=== PATIENT | male | born 1960 | race Caucasian/White ===

== ENCOUNTER 2016-11-24 12:39 | Emergency (ER) | payer OTHER ==
[~2016-11-24] VITALS: Ht 172.7 cm; Wt 72.1 kg
[~2016-11-24 12:39] MED LIST: CYCLOBENZAPRINE5 M3 PO; HYDROCODONE BIT1 T11 PO; NAPROSYN500 MG PO
[2016-11-24] MEDS ORDERED: ASPIR 8181 MG PO (13:00)
[2016-11-24] MEDS ORDERED: OMEPRAZOLE20 M2 PO (13:00)
[2016-11-24] MEDS ORDERED: PERPHENAZINE2 MG PO (13:00)
[2016-11-24] MEDS ORDERED: VITAMIN D31000 IU PO (13:02)
[2016-11-24] MEDS ORDERED: FLUTICASON0.05 MG/AC NAS (13:04)
[2016-11-24] MEDS ORDERED: VITAMIN B-11 TAB PO (13:04)
[2016-11-24] MEDS ORDERED: NEURONTIN400 MG PO (13:05)
[2016-11-24] MEDS ORDERED: CETIRIZINE HYDR10 MG PO (13:05)
[2016-11-24] MEDS ORDERED: VENTOLIN 02.5 MG/3 M INH (13:06)
[2016-11-24] MEDS ORDERED: ATROVENT I0.5 MG/2.5 INH (13:12)
[2016-11-24] MEDS ORDERED: [UNRECOGNIZED DRUG - OTHER] PO (13:14)
[2016-11-24] MEDS ORDERED: VENLAFAXINE HYD75 MG PO (13:16)
[2016-11-24] MEDS ORDERED: CELECOXIB200 MG PO (13:16)
[2016-11-24] MEDS ORDERED: AMITRIPTYLINE50 MG PO (13:16)
[2016-11-24 13:19] LABS: BASO % 0.4 % (0.0-1.0); EOS # 0.3 10*3/uL (0.0-0.4); EOS % 2.5 % (1.0-4.0); HEMATOCRIT 40.5 % (42.0-52.0); HEMOGLOBIN 13.6 g/dl (14.0-18.0); LYMPH # 2.5 10*3/uL (1.3-4.4); LYMPH % 24.3 % (27.0-41.0); MEAN CELL VOLUME 89.6 fl (80.0-94.0); MEAN CORPUSCULAR HGB 30.1 pg (27.0-31.0); MEAN CORPUSCULAR HGB CONC 33.6 g/dl (33.0-37.0); MEAN PLATELET VOLUME 10.8 fl (9.6-12.3); MONO # 0.7 10*3/uL (0.1-1.0); MONO % 7.1 % (3.0-9.0); NEUT # 6.6 10*3/uL (2.3-7.9); NEUT % 65.5 % (47.0-73.0); PLATELET COUNT AUTOMATED 165 10*3/uL (130-400); RED BLOOD COUNT 4.52 10*6/uL (4.50-5.90); RED CELL DISTRI WIDTH 13.1 % (0-14.5); WHITE BLOOD COUNT 10.1 10*3/uL (4.8-10.8)
[2016-11-24 13:39] LABS: BUN 12 mg/dl (7-24); CARBON DIOXIDE 28 mmol/L (21-32); CHLORIDE 108 mmol/L (98-107); EST GLOM FILT AFRICAN AMERICAN > 60 ml/min; GLUCOSE 112 mg/dL (65-99); POTASSIUM 4.2 mmol/L (3.5-5.1); SODIUM 144 mmol/L (136-145)
[2016-11-24 13:40] LABS: TROPONIN I < 0.015 ng/ml (<0.045)
== END 2016-11-24 14:41 | disposition home or self-care (01) ==
LOC: ED 12:39
PROVIDERS: Emergency Medicine
DX: R94.31 Abnormal electrocardiogram [ECG] [EKG] (principal); Z79.82 Long term (current) use of aspirin; Z79.899 Other long term (current) drug therapy

== ENCOUNTER 2020-10-22 14:34 | Observation (INO) | payer OTHER ==
[~2020-10-22] VITALS: Ht 172.7 cm; Wt 68.7 kg
[~2020-10-22 14:34] MED LIST changes: +AMITRIPTYLINE50 MG PO; +ASPIR 8181 MG PO; +ATROVENT I0.5 MG/2.5 INH; +CELECOXIB200 MG PO; +CETIRIZINE HYDR10 MG PO; +FLUTICASON0.05 MG/AC NAS; +NEURONTIN400 MG PO; +OMEPRAZOLE20 M2 PO; +PERPHENAZINE2 MG PO; +VENLAFAXINE HYD75 MG PO; +VENTOLIN 02.5 MG/3 M INH; +VITAMIN B-11 TAB PO; +VITAMIN D31000 IU PO; +[UNRECOGNIZED DRUG - OTHER] PO
[2020-10-22 14:44] VITALS: BP 124/85
[2020-10-22 14:51] LABS: BASO % 0.4 % (0.0-1.0); EOS # 0.3 10*3/uL (0.0-0.4); EOS % 2.8 % (1.0-4.0); HEMATOCRIT 35.7 % (42.0-52.0); LYMPH # 2.1 10*3/uL (1.3-4.4); LYMPH % 19.2 % (27.0-41.0); MEAN CELL VOLUME 91.5 fl (80.0-94.0); MEAN CORPUSCULAR HGB 29.2 pg (27.0-31.0); MEAN CORPUSCULAR HGB CONC 31.9 g/dl (33.0-37.0); MEAN PLATELET VOLUME 10.2 fl (9.6-12.3); MONO # 0.9 10*3/uL (0.1-1.0); MONO % 8.1 % (3.0-9.0); NEUT # 7.7 10*3/uL (2.3-7.9); NEUT % 69.2 % (47.0-73.0); PLATELET COUNT AUTOMATED 298 10*3/uL (130-400); RED CELL DISTRI WIDTH 12.9 % (0-14.5)
[2020-10-22 15:02] LABS: ACT PARTIAL THROMBO TIME 27.7 SECONDS (20.0-32.1)
[2020-10-22 15:09] LABS: ALBUMIN 2.9 gm/dl (3.1-4.5); ALKALINE PHOSPHATASE 111 U/L (45-117); BUN 24 mg/dl (7-24); CHLORIDE 108 mmol/L (98-107); CREATININE 1.41 mg/dL (0.70-1.30); POTASSIUM 4.3 mmol/L (3.5-5.1); SGOT/AST 9 IU/L (3-35); SGPT/ALT 17 U/L (12-78); SODIUM 141 mmol/L (136-145); TOTAL PROTEIN 7.4 gm/dL (6.4-8.2)
[2020-10-22 15:11] LABS: TROPONIN I < 0.015 ng/ml (<0.045)
[2020-10-22 15:37] VITALS: BP 131/75
[2020-10-22 17:49] VITALS: BP 157/76
[2020-10-22 18:05] VITALS: BP 146/88
[2020-10-22 18:13] VITALS: BP 146/88
[2020-10-22 20:12] VITALS: BP 132/85
[2020-10-23] VITALS (9 sets, daily range): BP systolic 98–145; BP diastolic 50–74
[2020-10-23 06:17] LABS: BASO # 0.1 10*3/uL (0.0-0.1); BASO % 0.6 % (0.0-1.0); EOS # 0.4 10*3/uL (0.0-0.4); HEMATOCRIT 32.7 % (42.0-52.0); LYMPH # 2.7 10*3/uL (1.3-4.4); LYMPH % 26.4 % (27.0-41.0); MEAN CELL VOLUME 92.1 fl (80.0-94.0); MEAN CORPUSCULAR HGB 28.7 pg (27.0-31.0); MEAN CORPUSCULAR HGB CONC 31.2 g/dl (33.0-37.0); MEAN PLATELET VOLUME 10.8 fl (9.6-12.3); MONO # 0.8 10*3/uL (0.1-1.0); NEUT # 6.3 10*3/uL (2.3-7.9); NEUT % 60.5 % (47.0-73.0); PLATELET COUNT AUTOMATED 266 10*3/uL (130-400); RED BLOOD COUNT 3.55 10*6/uL (4.50-5.90); RED CELL DISTRI WIDTH 12.9 % (0-14.5); WHITE BLOOD COUNT 10.4 10*3/uL (4.8-10.8)
[2020-10-23 06:31] LABS: CHLORIDE 108 mmol/L (98-107); SODIUM 140 mmol/L (136-145)
[2020-10-23 06:52] LABS: BUN 23 mg/dl (7-24); CHOLESTEROL 141 mg/dL (<200); CREATININE 1.18 mg/dL (0.70-1.30); FREE T4 1.09 ng/dl (0.76-1.46); HDL CHOLESTEROL 43 mg/dl (40-60); LDL CHOLESTEROL 75 mg/dL (9-159); THYROID STIM HORMONE (HS) 0.817 uIU/ml (0.358-4.75); TRIGLYCERIDES 115 mg/dl (<150); VLDL CHOLESTEROL 23 mg/dL (6-40)
[2020-10-23 07:31] LABS: VITAMIN D, 25-HYDROXY 41.1 ng/mL (30-100)
[2020-10-24] VITALS: BP 135/65
[2020-10-24 06:40] LABS: BASO % 0.2 % (0.0-1.0); EOS # 0.3 10*3/uL (0.0-0.4); EOS % 3.9 % (1.0-4.0); HEMATOCRIT 29.5 % (42.0-52.0); LYMPH # 2.2 10*3/uL (1.3-4.4); LYMPH % 26.6 % (27.0-41.0); MEAN CELL VOLUME 93.7 fl (80.0-94.0); MEAN CORPUSCULAR HGB 28.6 pg (27.0-31.0); MEAN CORPUSCULAR HGB CONC 30.5 g/dl (33.0-37.0); MEAN PLATELET VOLUME 10.8 fl (9.6-12.3); MONO # 0.6 10*3/uL (0.1-1.0); MONO % 6.9 % (3.0-9.0); NEUT # 5.1 10*3/uL (2.3-7.9); PLATELET COUNT AUTOMATED 225 10*3/uL (130-400); RED BLOOD COUNT 3.15 10*6/uL (4.50-5.90); RED CELL DISTRI WIDTH 12.9 % (0-14.5); WHITE BLOOD COUNT 8.2 10*3/uL (4.8-10.8)
[2020-10-24 06:56] LABS: BUN 26 mg/dl (7-24); CHLORIDE 108 mmol/L (98-107); CREATININE 1.08 mg/dL (0.70-1.30); POTASSIUM 4.2 mmol/L (3.5-5.1); SODIUM 140 mmol/L (136-145)
[2020-10-24 08:00] VITALS: BP 121/76
[2020-10-24 12:00] VITALS: BP 121/63
[2020-10-24 16:00] VITALS: BP 112/62
[2020-10-24 20:00] VITALS: BP 128/67
[2020-10-25 00:30] VITALS: BP 141/74
[2020-10-25 08:00] VITALS: BP 136/76
[2020-10-25] MEDS ORDERED: DEBROX 15 ML 1515 ML OT (10:44)
[2020-10-25] MEDS ORDERED: Carafate1 GM PO (10:44)
[2020-10-25] MEDS ORDERED: PANTOPRAZOLE SO40 MG PO (10:44)
== END 2020-10-25 12:15 | disposition home or self-care (01) ==
LOC: ED 14:34 → EDHOLD 17:19 → 4E 17:19
PROVIDERS: Internal Medicine; Student in an Organized Health Care Education/Training Program; ADMIT Internal Medicine; ATTEND Internal Medicine
DX: R13.10 Dysphagia, unspecified (principal); K22.8 Other specified diseases of esophagus; R07.89 Other chest pain; M54.9 Dorsalgia, unspecified; K20.90 Esophagitis, unspecified without bleeding; R10.13 Epigastric pain; K59.00 Constipation, unspecified; J61 Pneumoconiosis due to asbestos and other mineral fibers; J43.9 Emphysema, unspecified; F17.210 Nicotine dependence, cigarettes, uncomplicated; Z71.6 Tobacco abuse counseling

== ENCOUNTER 2021-07-16 06:07 | Inpatient (IN) | payer OTHER ==
[~2021-07-16] VITALS: Ht 172.7 cm; Wt 67.4 kg
[~2021-07-16 06:07] MED LIST changes: +ATORVASTATIN CA80 M1 PO; +BUMETANIDE1 MG PO; +Carafate1 GM PO; +DEBROX 15 ML 1515 ML OT; +HYDRALAZINE10 MG PO; +IMDUR SA30 MG PO; +K-TAB20 MEQ PO; +METOPROLOL SUCC50 M1 PO; +PANTOPRAZOLE SO40 MG PO
[2021-07-16 06:10] VITALS: BP 160/91
[2021-07-16 07:55] LABS: BASO % 0.1 % (0.0-1.0); HEMATOCRIT 31.5 % (42.0-52.0); LYMPH # 1.1 10*3/uL (1.3-4.4); LYMPH % 6.1 % (27.0-41.0); MEAN CELL VOLUME 82.2 fl (80.0-94.0); MEAN CORPUSCULAR HGB 26.1 pg (27.0-31.0); MEAN CORPUSCULAR HGB CONC 31.7 g/dl (33.0-37.0); MEAN PLATELET VOLUME 12.3 fl (9.6-12.3); MONO # 1.2 10*3/uL (0.1-1.0); MONO % 6.5 % (3.0-9.0); NEUT # 15.6 10*3/uL (2.3-7.9); NEUT % 86.7 % (47.0-73.0); NUCLEATED RED BLOOD CELL 0.1 % (0.0-0.0); PLATELET COUNT AUTOMATED 135 10*3/uL (130-400); RED BLOOD COUNT 3.83 10*6/uL (4.50-5.90); RED CELL DISTRI WIDTH 18.9 % (0-14.5)
[2021-07-16 08:06] LABS: INTERNATIONAL NORM RATIO 2.3 (2.0-3.5)
[2021-07-16 08:07] VITALS: BP 149/94
[2021-07-16 08:21] LABS: BILIRUBIN Negative (Negative); BLOOD Trace-Lysed (Negative); CLARITY Clear (Clear); COLOR Orange (Yellow); GLUCOSE Negative (Negative); KETONE Negative (Negative); LEUKO ESTERASE Trace (Negative); NITRITE Negative (Negative)
[2021-07-16 08:27] LABS: PLATELET SUFFICIENCY NORMAL (NORMAL); POLYCHROMASIA SLIGHT; TOTAL CELLS COUNTED 100 #CELLS
[2021-07-16 08:49] LABS: BACTERIA 2+; EPITHELIAL CELLS 0-2
[2021-07-16 09:45] VITALS: BP 150/70
[2021-07-16 10:08] LABS: ALBUMIN 2.4 gm/dl (3.1-4.5); CREATININE 2.65 mg/dL (0.70-1.30); POTASSIUM 4.9 mmol/L (3.5-5.1); TOTAL PROTEIN 6.1 gm/dL (6.4-8.2)
[2021-07-16 10:16] LABS: CKMB 11.8 ng/ml (0.5-3.6)
[2021-07-16 12:00] VITALS: BP 159/96
[2021-07-16 16:00] VITALS: BP 149/91
[2021-07-16 20:00] VITALS: BP 140/100
[2021-07-17] VITALS: BP 150/121
[2021-07-17 06:23] LABS: HEMATOCRIT 30.7 % (42.0-52.0); MEAN CELL VOLUME 83.7 fl (80.0-94.0); MEAN CORPUSCULAR HGB 26.4 pg (27.0-31.0); MEAN CORPUSCULAR HGB CONC 31.6 g/dl (33.0-37.0); MEAN PLATELET VOLUME 11.9 fl (9.6-12.3); NUCLEATED RED BLOOD CELL 0.1 % (0.0-0.0); PLATELET COUNT AUTOMATED 109 10*3/uL (130-400); RED BLOOD COUNT 3.67 10*6/uL (4.50-5.90); RED CELL DISTRI WIDTH 19.5 % (0-14.5); WHITE BLOOD COUNT 24.7 10*3/uL (4.8-10.8)
[2021-07-17 06:28] LABS: ALBUMIN 2.2 gm/dl (3.1-4.5)
[2021-07-17 06:34] LABS: CREATININE 2.66 mg/dL (0.70-1.30); TOTAL PROTEIN 5.7 gm/dL (6.4-8.2)
[2021-07-17 06:36] LABS: BILIRUBIN Negative (Negative); BLOOD 3+ (Negative); CLARITY Cloudy (Clear); COLOR Orange (Yellow); GLUCOSE Negative (Negative); KETONE Negative (Negative); LEUKO ESTERASE 1+ (Negative); NITRITE Negative (Negative)
[2021-07-17 06:51] LABS: RBC TNTC rbc/hpf (0-2)
[2021-07-17 07:42] LABS: TOTAL CELLS COUNTED 100 #CELLS
[2021-07-17 07:43] LABS: BURR CELLS FEW; PLATELET SUFFICIENCY LOW (NORMAL); POLYCHROMASIA SLIGHT; SCHISTOCYTES FEW; TARGET CELLS FEW
[2021-07-17 08:00] VITALS: BP 126/72
[2021-07-17 12:00] VITALS: BP 126/56
[2021-07-17 16:00] VITALS: BP 118/75
[2021-07-17 17:09] LABS: CREATININE 2.58 mg/dL (0.70-1.30); POTASSIUM 3.4 mmol/L (3.5-5.1)
[2021-07-17 20:00] VITALS: BP 114/55
[2021-07-18] VITALS: BP 105/61
[2021-07-18 08:00] VITALS: BP 121/77
[2021-07-18 09:39] LABS: BASO % 0.1 % (0.0-1.0); EOS # 0.3 10*3/uL (0.0-0.4); EOS % 1.9 % (1.0-4.0); HEMATOCRIT 33.5 % (42.0-52.0); LYMPH # 0.8 10*3/uL (1.3-4.4); LYMPH % 4.8 % (27.0-41.0); MEAN CELL VOLUME 84.6 fl (80.0-94.0); MEAN CORPUSCULAR HGB CONC 30.7 g/dl (33.0-37.0); MEAN PLATELET VOLUME 12.6 fl (9.6-12.3); MONO # 0.6 10*3/uL (0.1-1.0); NEUT # 14.3 10*3/uL (2.3-7.9); NEUT % 88.7 % (47.0-73.0); PLATELET COUNT AUTOMATED 95 10*3/uL (130-400); RED BLOOD COUNT 3.96 10*6/uL (4.50-5.90); RED CELL DISTRI WIDTH 20.1 % (0-14.5); WHITE BLOOD COUNT 16.1 10*3/uL (4.8-10.8)
[2021-07-18 09:54] LABS: CREATININE 2.79 mg/dL (0.70-1.30); POTASSIUM 3.5 mmol/L (3.5-5.1)
[2021-07-18 12:00] VITALS: BP 115/54
[2021-07-18 16:00] VITALS: BP 112/68
[2021-07-18 20:00] VITALS: BP 100/50
[2021-07-19] VITALS: BP 121/52
[2021-07-19 06:40] LABS: BASO % 0.1 % (0.0-1.0); EOS # 0.4 10*3/uL (0.0-0.4); EOS % 3.9 % (1.0-4.0); HEMATOCRIT 30.4 % (42.0-52.0); LYMPH % 8.6 % (27.0-41.0); MEAN CELL VOLUME 84.4 fl (80.0-94.0); MEAN CORPUSCULAR HGB 26.4 pg (27.0-31.0); MEAN CORPUSCULAR HGB CONC 31.3 g/dl (33.0-37.0); MONO # 0.5 10*3/uL (0.1-1.0); MONO % 4.8 % (3.0-9.0); NEUT # 9.1 10*3/uL (2.3-7.9); PLATELET COUNT AUTOMATED 79 10*3/uL (130-400); RED CELL DISTRI WIDTH 20.4 % (0-14.5); WHITE BLOOD COUNT 11.1 10*3/uL (4.8-10.8)
[2021-07-19 06:58] LABS: CREATININE 2.39 mg/dL (0.70-1.30); POTASSIUM 2.7 mmol/L (3.5-5.1)
[2021-07-19 08:00] VITALS: BP 145/75
[2021-07-19 12:00] VITALS: BP 114/60
[2021-07-19 16:00] VITALS: BP 122/75
[2021-07-19 20:00] VITALS: BP 120/82
[2021-07-20] VITALS: BP 108/83
[2021-07-20 06:38] LABS: BASO % 0.1 % (0.0-1.0); EOS # 0.3 10*3/uL (0.0-0.4); EOS % 3.4 % (1.0-4.0); HEMATOCRIT 31.6 % (42.0-52.0); LYMPH # 1.2 10*3/uL (1.3-4.4); LYMPH % 12.5 % (27.0-41.0); MEAN CELL VOLUME 84.9 fl (80.0-94.0); MEAN CORPUSCULAR HGB 26.1 pg (27.0-31.0); MEAN CORPUSCULAR HGB CONC 30.7 g/dl (33.0-37.0); MEAN PLATELET VOLUME 12.2 fl (9.6-12.3); MONO # 0.6 10*3/uL (0.1-1.0); NEUT # 7.3 10*3/uL (2.3-7.9); NEUT % 77.7 % (47.0-73.0); PLATELET COUNT AUTOMATED 82 10*3/uL (130-400); RED BLOOD COUNT 3.72 10*6/uL (4.50-5.90); RED CELL DISTRI WIDTH 20.7 % (0-14.5); WHITE BLOOD COUNT 9.4 10*3/uL (4.8-10.8)
[2021-07-20 06:54] LABS: CREATININE 2.43 mg/dL (0.70-1.30); POTASSIUM 3.7 mmol/L (3.5-5.1)
[2021-07-20 08:00] VITALS: BP 152/83
[2021-07-20 12:00] VITALS: BP 134/82
[2021-07-20 12:04] LABS: INTERNATIONAL NORM RATIO 1.4 (2.0-3.5)
[2021-07-20 16:00] VITALS: BP 128/76
[2021-07-20 20:00] VITALS: BP 144/78
[2021-07-21] VITALS: BP 109/75
[2021-07-21 06:43] LABS: BASO % 0.2 % (0.0-1.0); EOS # 0.3 10*3/uL (0.0-0.4); EOS % 3.3 % (1.0-4.0); HEMATOCRIT 32.6 % (42.0-52.0); LYMPH # 1.5 10*3/uL (1.3-4.4); LYMPH % 16.3 % (27.0-41.0); MEAN CELL VOLUME 85.6 fl (80.0-94.0); MEAN CORPUSCULAR HGB 26.2 pg (27.0-31.0); MEAN CORPUSCULAR HGB CONC 30.7 g/dl (33.0-37.0); MEAN PLATELET VOLUME 11.5 fl (9.6-12.3); MONO # 0.6 10*3/uL (0.1-1.0); MONO % 6.8 % (3.0-9.0); NEUT # 6.8 10*3/uL (2.3-7.9); NEUT % 72.9 % (47.0-73.0); PLATELET COUNT AUTOMATED 87 10*3/uL (130-400); RED BLOOD COUNT 3.81 10*6/uL (4.50-5.90); RED CELL DISTRI WIDTH 20.9 % (0-14.5); WHITE BLOOD COUNT 9.3 10*3/uL (4.8-10.8)
[2021-07-21 07:04] LABS: CREATININE 2.34 mg/dL (0.70-1.30); POTASSIUM 3.6 mmol/L (3.5-5.1); TOTAL PROTEIN 5.7 gm/dL (6.4-8.2)
[2021-07-21 08:00] VITALS: BP 141/92
[2021-07-21] MEDS ORDERED: ARTIFICIAL TEAR15 M9 OU (08:33)
[2021-07-21] MEDS ORDERED: BUDESONIDE-FO10.2 G1 INH (08:36)
[2021-07-21] MEDS ORDERED: REFRESH TEARS15 ML OU (08:37)
[2021-07-21] MEDS ORDERED: COREG12.5 M1 PO (08:39)
[2021-07-21] MEDS ORDERED: LISINOPRIL10 M1 PO (08:40)
[2021-07-21] MEDS ORDERED: OMEPRAZOLE20 M2 PO (08:41)
[2021-07-21] MEDS ORDERED: PERPHENAZINE2 MG PO (08:42)
[2021-07-21] MEDS ORDERED: ALDACTONE25 MG PO (08:44)
[2021-07-21] MEDS ORDERED: VENLAFAXINE75 M1 PO (08:44)
[2021-07-21 12:00] VITALS: BP 108/57
[2021-07-21] MEDS ORDERED: CEFADROXIL500 M1 PO (14:26)
[2021-07-21] MEDS ORDERED: K-TAB20 MEQ PO (14:27)
[2021-07-21] MEDS ORDERED: ASPIRIN ADULT L81 M2 PO (14:32)
== END 2021-07-21 15:26 | disposition home or self-care (01) | DRG 720 ==
LOC: ED 06:07 → EDHOLD 08:22 → 5E 08:22 → 4E 09:16 → 5E 07-19 05:49
PROVIDERS: Emergency Medicine; Family Medicine; Internal Medicine; Registered Nurse; Student in an Organized Health Care Education/Training Program; ADMIT Student in an Organized Health Care Education/Training Program; ATTEND Student in an Organized Health Care Education/Training Program
DX: A41.9 Sepsis, unspecified organism (principal); N30.00 Acute cystitis without hematuria; N17.0 Acute kidney failure with tubular necrosis; S30.1XXA Contusion of abdominal wall, initial encounter; K82.8 Other specified diseases of gallbladder; Z20.822 Contact with and (suspected) exposure to COVID-19; E87.2 Acidosis; E43 Unspecified severe protein-calorie malnutrition; N18.4 Chronic kidney disease, stage 4 (severe); M79.604 Pain in right leg; M79.605 Pain in left leg; D64.9 Anemia, unspecified; R26.2 Difficulty in walking, not elsewhere classified; R74.01 Elevation of levels of liver transaminase levels; R33.9 Retention of urine, unspecified; L03.115 Cellulitis of right lower limb; L03.116 Cellulitis of left lower limb; I50.22 Chronic systolic (congestive) heart failure; I08.1 Rheumatic disorders of both mitral and tricuspid valves; J44.9 Chronic obstructive pulmonary disease, unspecified; Z79.51 Long term (current) use of inhaled steroids; Z79.82 Long term (current) use of aspirin; Z79.899 Other long term (current) drug therapy; I25.2 Old myocardial infarction; Z68.22 Body mass index [BMI] 22.0-22.9, adult

== ENCOUNTER 2021-12-07 07:20 | Emergency (ER) | payer OTHER ==
[~2021-12-07] VITALS: Ht 172.7 cm; Wt 56.2 kg
[~2021-12-07 07:20] MED LIST changes: +ALDACTONE25 MG PO; +ARTIFICIAL TEAR15 M9 OU; +ASPIRIN ADULT L81 M2 PO; +BUDESONIDE-FO10.2 G1 INH; +CARAFATE1 G1 PO; +CEFADROXIL500 M1 PO; +CELECOXIB200 M1 PO; +COREG12.5 M1 PO; +FUROSEMIDE40 MG PO; +GABAPENTIN100 M2 PO; +GABAPENTIN400 MG PO; +LISINOPRIL10 M1 PO; +METOPROLOL SUCC25 M2 PO; +REFRESH TEARS15 ML OU; +VENLAFAXINE75 M1 PO; +ZESTRIL2.5 MG PO; +ZOSYN 3.373.375 GM/1 IV
[2021-12-07 08:41] LABS: BASO % 0.2 % (0.0-1.0); EOS # 0.1 10*3/uL (0.0-0.4); EOS % 0.7 % (1.0-4.0); HEMATOCRIT 37.5 % (42.0-52.0); LYMPH # 1.7 10*3/uL (1.3-4.4); LYMPH % 12.7 % (27.0-41.0); MEAN CORPUSCULAR HGB 27.7 pg (27.0-31.0); MEAN CORPUSCULAR HGB CONC 32.5 g/dl (33.0-37.0); MEAN PLATELET VOLUME 10.6 fl (9.6-12.3); MONO # 1.4 10*3/uL (0.1-1.0); MONO % 10.1 % (3.0-9.0); NEUT # 10.3 10*3/uL (2.3-7.9); NEUT % 75.9 % (47.0-73.0); PLATELET COUNT AUTOMATED 239 10*3/uL (130-400); RED BLOOD COUNT 4.41 10*6/uL (4.50-5.90); RED CELL DISTRI WIDTH 17.4 % (0-14.5); WHITE BLOOD COUNT 13.6 10*3/uL (4.8-10.8)
[2021-12-07 09:03] LABS: CREATININE 1.45 mg/dL (0.70-1.30); POTASSIUM 3.5 mmol/L (3.5-5.1); URIC ACID 8.4 mg/dL (3.5-7.2)
[2021-12-07] MEDS ORDERED: PREDNISONE50 MG PO (11:22)
[2021-12-07] MEDS ORDERED: PERCOCET 5-3251 EACH PO (11:22)
== END 2021-12-07 12:00 | disposition home or self-care (01) ==
LOC: ED 07:20
PROVIDERS: Emergency Medicine
DX: M10.9 Gout, unspecified (principal); Z79.899 Other long term (current) drug therapy

== ENCOUNTER 2024-01-18 16:08 | Emergency (ER) | payer OTHER ==
[~2024-01-18] VITALS: Ht 172.7 cm; Wt 76.7 kg
[~2024-01-18 16:08] MED LIST changes: +CENTRAVITES 501 EACH PO; +CETIRIZINE10 MG PO; +ENTRESTO 24 MG1 EACH PO; +HYDROCODONE-AC1 EAC1 PO; +LEVOFLOXACIN500 MG PO; +NEURONTIN100 MG PO; +PERCOCET 5-3251 EACH PO; +PREDNISONE10 MG PO; +PREDNISONE50 MG PO; +TAMSULOSIN HCL0.4 MG PO; +TORSEMIDE10 MG PO; +VENLAFAXINE150 MG PO; +VITAMIN D350 MCG PO
[2024-01-18 17:48] LABS: BASO # 0.1 10*3/uL (0.0-0.1); BASO % 0.5 % (0.0-1.0); EOS # 0.5 10*3/uL (0.0-0.4); EOS % 4.6 % (1.0-4.0); HEMATOCRIT 38.9 % (42.0-52.0); LYMPH # 2.6 10*3/uL (1.3-4.4); LYMPH % 26.3 % (27.0-41.0); MEAN CELL VOLUME 96.3 fl (80.0-94.0); MEAN CORPUSCULAR HGB 31.4 pg (27.0-31.0); MEAN CORPUSCULAR HGB CONC 32.6 g/dl (33.0-37.0); MEAN PLATELET VOLUME 10.8 fl (9.6-12.3); MONO # 0.6 10*3/uL (0.1-1.0); MONO % 6.3 % (3.0-9.0); NEUT % 61.9 % (47.0-73.0); PLATELET COUNT AUTOMATED 175 10*3/uL (130-400); RED BLOOD COUNT 4.04 10*6/uL (4.50-5.90); RED CELL DISTRI WIDTH 14.2 % (0-14.5); WHITE BLOOD COUNT 9.8 10*3/uL (4.8-10.8)
[2024-01-18 18:09] LABS: POTASSIUM 3.2 mmol/L (3.4-5.1); TOTAL PROTEIN 7.1 gm/dL (6.0-8.0)
[2024-01-18] MEDS ORDERED: VIBRAMYCIN100 MG PO (19:27)
[2024-01-18] MEDS ORDERED: MAGNESIUM OXIDE 400 MG TAB PO ONE (19:35)
[2024-01-18] MEDS ORDERED: POTASSIUM CHLORIDE 20 MEQ TAB PO ONE (19:35)
== END 2024-01-18 19:51 | disposition home or self-care (01) ==
LOC: ED 16:08
PROVIDERS: Internal Medicine
DX: S90.932A Unspecified superficial injury of left great toe, initial encounter (principal); J44.9 Chronic obstructive pulmonary disease, unspecified; I10 Essential (primary) hypertension; K21.9 Gastro-esophageal reflux disease without esophagitis; Z98.890 Other specified postprocedural states; Z87.891 Personal history of nicotine dependence; X58.XXXA Exposure to other specified factors, initial encounter; Y93.89 Activity, other specified; Y92.009 Unspecified place in unspecified non-institutional (private) residence as the place of occurrence of the external cause; Y99.8 Other external cause status

== ENCOUNTER 2024-09-13 15:49 | Inpatient (IN) | payer OTHER, MEDICAID ==
[~2024-09-13] VITALS: Ht 172.7 cm; Wt 76.4 kg
[~2024-09-13 15:49] MED LIST changes: +AMITRIPTYLINE H75 MG PO; +JARDIANCE10 MG PO; +LIPITOR20 MG PO; +PROTONIX40 MG PO; +VIBRAMYCIN100 MG PO
[2024-09-13 16:13] VITALS: BP 138/95
[2024-09-13] MEDS ORDERED: SODIUM CHLORIDE 0.9% 1,000 ML IV ONE ×2 (16:20→17:15)
[2024-09-13] MEDS ORDERED: Ondansetron Hydrochloride 4 MG/2 ML VIAL IV ONE (16:20)
[2024-09-13] MEDS ORDERED: diazePAM 5 MG TAB PO ONE (16:20)
[2024-09-13] MEDS ORDERED: Meclizine Hydrochloride 25 MG TAB PO ONE (16:20)
[2024-09-13 16:36] LABS: BASO % 0.2 % (0.0-1.0); HEMATOCRIT 48.7 % (42.0-52.0); MEAN CELL VOLUME 94.6 fl (80.0-94.0); MEAN CORPUSCULAR HGB 30.9 pg (27.0-31.0); MEAN CORPUSCULAR HGB CONC 32.6 g/dl (33.0-37.0); MEAN PLATELET VOLUME 10.5 fl (9.6-12.3); NEUT # 17.1 10*3/uL (2.3-7.9); NEUT % 82.5 % (47.0-73.0); PLATELET COUNT AUTOMATED 251 10*3/uL (130-400); RED BLOOD COUNT 5.15 10*6/uL (4.50-5.90); RED CELL DISTRI WIDTH 14.8 % (0-14.5); WHITE BLOOD COUNT 20.7 10*3/uL (4.8-10.8)
[2024-09-13 16:54] LABS: POTASSIUM 3.2 mmol/L (3.4-5.1)
[2024-09-13] MEDS ORDERED: SODIUM CHLORIDE 0.9% 500 ML IV ONE (17:15)
[2024-09-13] MEDS ORDERED: ACETAMINOPHEN 325 MG TAB PO PRN (17:40)
[2024-09-13] MEDS ORDERED: BISACODYL 5 MG TAB PO PRN (17:40)
[2024-09-13] MEDS ORDERED: Ondansetron Hydrochloride 4 MG/2 ML VIAL IV PRN (17:40)
[2024-09-13] MEDS ORDERED: ACETAMINOPHEN 650 MG SUPP R PRN (17:40)
[2024-09-13] MEDS ORDERED: TEMAZEPAM 15 MG CAP PO PRN (17:40)
[2024-09-13] MEDS ORDERED: Magnesium Hydroxide 30 ML UDC PO PRN (17:40)
[2024-09-13] MEDS ORDERED: BISACODYL 10 MG SUPP R PRN (17:40)
[2024-09-13] MEDS ORDERED: Albuterol Sulf/Ipratropium 3 ML VIAL NEB PRN (17:55)
[2024-09-13] MEDS ORDERED: POTASSIUM CHLORIDE 20 MEQ TAB PO ONE (18:10)
[2024-09-13] MEDS ORDERED: AZITHROMYCIN 250 ML IV SCH (19:00)
[2024-09-13] MEDS ORDERED: cefTRIAXone Sodium 10 ML IV SCH (20:00)
[2024-09-13] MEDS ORDERED: methylPREDNISolone sod succ 40 MG VIAL IV SCH (20:00)
[2024-09-13] MEDS ORDERED: Nicotine 21 MG PATCH T SCH (20:00)
[2024-09-13] MEDS ORDERED: GUAIFENESIN 600 MG TAB ER PO SCH (22:00)
[2024-09-13] MEDS ORDERED: Amitriptyline Hydrochloride 50 MG TAB PO SCH (22:00)
[2024-09-13] MEDS ORDERED: HEPARIN SODIUM 5,000 UNIT/ML VIAL SC SCH (22:00)
[2024-09-13] MEDS ORDERED: SUCRALFATE 1 GM TAB PO SCH (22:00)
[2024-09-13 22:51] VITALS: BP 160/100
[2024-09-13 23:10] VITALS: BP 157/97
[2024-09-14] VITALS: BP 100/75
[2024-09-14 01:59] VITALS: BP 154/82
[2024-09-14 02:02] LABS: BILIRUBIN Negative (Negative); BLOOD 1+ (Negative); CLARITY Clear (Clear); COLOR Yellow (Yellow); GLUCOSE 3+ (Negative); KETONE Negative (Negative); LEUKO ESTERASE Negative (Negative); NITRITE Negative (Negative); SPECIFIC GRAVITY 1.025 (1.001-1.030); UROBILINOGEN 0.2 E.U./dl (0.0-1.0)
[2024-09-14 02:43] LABS: BACTERIA TRACE; COARSE GRANULAR CAST 0-2
[2024-09-14] MEDS ORDERED: Pantoprazole Sodium 40 MG TAB PO SCH ×2 (06:00→10:00)
[2024-09-14 06:25] LABS: TOTAL PROTEIN 6.8 gm/dL (6.0-8.0)
[2024-09-14 06:34] LABS: ACT PARTIAL THROMBO TIME 26.9 SECONDS (20.0-32.1)
[2024-09-14 06:37] LABS: BASO % 0.1 % (0.0-1.0); HEMATOCRIT 43.1 % (42.0-52.0); MEAN CORPUSCULAR HGB 30.6 pg (27.0-31.0); MEAN CORPUSCULAR HGB CONC 31.3 g/dl (33.0-37.0); MEAN PLATELET VOLUME 11.4 fl (9.6-12.3); MONO # 0.4 10*3/uL (0.1-1.0); MONO % 2.2 % (3.0-9.0); NEUT % 85.8 % (47.0-73.0); PLATELET COUNT AUTOMATED 200 10*3/uL (130-400); RED BLOOD COUNT 4.41 10*6/uL (4.50-5.90); RED CELL DISTRI WIDTH 14.9 % (0-14.5); WHITE BLOOD COUNT 16.3 10*3/uL (4.8-10.8)
[2024-09-14 07:01] LABS: MEAN CELL VOLUME 97.7 fl (80.0-94.0)
[2024-09-14 08:00] VITALS: BP 180/93
[2024-09-14 08:09] LABS: VITAMIN D, 25-HYDROXY 75.3 ng/mL (30-100)
[2024-09-14] MEDS ORDERED: SODIUM CHLORIDE 0.9% 1,000 ML IV ONE (09:50)
[2024-09-14] MEDS ORDERED: Cholecalciferol 2,000 UNIT TABLET (50 MCG) PO SCH (10:00)
[2024-09-14] MEDS ORDERED: METOPROLOL SUCCINATE XR 25 MG TAB PO SCH ×2 (10:00→22:00)
[2024-09-14] MEDS ORDERED: ATORVASTATIN CALCIUM 40 MG TABLET PO SCH (10:00)
[2024-09-14] MEDS ORDERED: Thiamine 100 MG TAB PO SCH (10:00)
[2024-09-14] MEDS ORDERED: EMPAGLIFLOZIN 10 MG TABLET PO SCH (10:00)
[2024-09-14] MEDS ORDERED: Labetalol Hydrochloride 20 MG/4 ML SYR IV ONE ×2 (11:25→16:25)
[2024-09-14 12:00] VITALS: BP 180/100
[2024-09-14] MEDS ORDERED: Albuterol Sulfate 2.5 MG/3 ML VIAL NEB SCH (14:00)
[2024-09-14] MEDS ORDERED: methylPREDNISolone sod succ 40 MG VIAL IV SCH (14:00)
[2024-09-14 16:00] VITALS: BP 142/82
[2024-09-14 20:00] VITALS: BP 116/58
[2024-09-15] VITALS: BP 100/75
[2024-09-15 06:00] LABS: POTASSIUM 3.8 mmol/L (3.4-5.1)
[2024-09-15 06:22] LABS: BASO % 0.1 % (0.0-1.0); EOS % 0.1 % (1.0-4.0); HEMATOCRIT 37.1 % (42.0-52.0); MEAN CELL VOLUME 97.4 fl (80.0-94.0); MEAN CORPUSCULAR HGB 30.4 pg (27.0-31.0); MEAN CORPUSCULAR HGB CONC 31.3 g/dl (33.0-37.0); MEAN PLATELET VOLUME 12.1 fl (9.6-12.3); MONO # 0.5 10*3/uL (0.1-1.0); MONO % 3.9 % (3.0-9.0); NEUT % 80.9 % (47.0-73.0); PLATELET COUNT AUTOMATED 171 10*3/uL (130-400); RED BLOOD COUNT 3.81 10*6/uL (4.50-5.90); RED CELL DISTRI WIDTH 14.9 % (0-14.5); WHITE BLOOD COUNT 12.4 10*3/uL (4.8-10.8)
[2024-09-15 08:00] VITALS: BP 158/68
[2024-09-15] MEDS ORDERED: MAGNESIUM SULFATE 50 ML IV ONE (09:25)
[2024-09-15] MEDS ORDERED: amLODIPine besylate 5 MG TAB PO SCH (10:00)
[2024-09-15 12:00] VITALS: BP 178/94
[2024-09-15 16:00] VITALS: BP 176/88
[2024-09-15 20:00] VITALS: BP 144/69
[2024-09-16] VITALS: BP 117/81; BP 168/71
[2024-09-16 06:10] LABS: POTASSIUM 3.6 mmol/L (3.4-5.1); TOTAL PROTEIN 6.2 gm/dL (6.0-8.0)
[2024-09-16 06:25] LABS: BASO % 0.2 % (0.0-1.0); HEMATOCRIT 37.7 % (42.0-52.0); MEAN CELL VOLUME 97.2 fl (80.0-94.0); MEAN CORPUSCULAR HGB 30.9 pg (27.0-31.0); MEAN CORPUSCULAR HGB CONC 31.8 g/dl (33.0-37.0); MEAN PLATELET VOLUME 11.8 fl (9.6-12.3); MONO # 0.5 10*3/uL (0.1-1.0); MONO % 3.9 % (3.0-9.0); NEUT # 10.5 10*3/uL (2.3-7.9); NEUT % 84.4 % (47.0-73.0); NUCLEATED RED BLOOD CELL 0.2 % (0.0-0.0); PLATELET COUNT AUTOMATED 168 10*3/uL (130-400); RED BLOOD COUNT 3.88 10*6/uL (4.50-5.90); RED CELL DISTRI WIDTH 14.9 % (0-14.5); WHITE BLOOD COUNT 12.4 10*3/uL (4.8-10.8)
[2024-09-16 08:00] VITALS: BP 151/69
[2024-09-16 12:00] VITALS: BP 162/99
[2024-09-16 16:00] VITALS: BP 157/96
[2024-09-16 20:00] VITALS: BP 135/78
[2024-09-16] MEDS ORDERED: methylPREDNISolone sod succ 40 MG VIAL IV SCH (22:00)
[2024-09-17] VITALS: BP 152/91
[2024-09-17 07:20] LABS: HEMATOCRIT 38.9 % (42.0-52.0); MEAN CELL VOLUME 97.7 fl (80.0-94.0); MEAN CORPUSCULAR HGB 30.7 pg (27.0-31.0); MEAN CORPUSCULAR HGB CONC 31.4 g/dl (33.0-37.0); MEAN PLATELET VOLUME 11.6 fl (9.6-12.3); MONO # 0.6 10*3/uL (0.1-1.0); MONO % 5.1 % (3.0-9.0); NEUT % 82.8 % (47.0-73.0); NUCLEATED RED BLOOD CELL 0.2 % (0.0-0.0); PLATELET COUNT AUTOMATED 159 10*3/uL (130-400); RED BLOOD COUNT 3.98 10*6/uL (4.50-5.90); RED CELL DISTRI WIDTH 14.8 % (0-14.5); WHITE BLOOD COUNT 10.9 10*3/uL (4.8-10.8)
[2024-09-17 07:46] LABS: POTASSIUM 3.9 mmol/L (3.4-5.1)
[2024-09-17 08:00] VITALS: BP 140/80
[2024-09-17] MEDS ORDERED: ASPIRIN ENTERIC COATED 81 MG TAB PO SCH (10:00)
[2024-09-17] MEDS ORDERED: AMLODIPINE BESYL5 MG PO (11:35)
[2024-09-17] MEDS ORDERED: SYMB80 INH (11:35)
[2024-09-17] MEDS ORDERED: VENT7GM INH (11:35)
[2024-09-17] MEDS ORDERED: OMNICEF300 MG PO (11:35)
[2024-09-17] MEDS ORDERED: ZITHROMAX250 MG PO (11:35)
[2024-09-17] MEDS ORDERED: MUCINEX1200 M1 PO (11:35)
[2024-09-17] MEDS ORDERED: NEBULIZER (11:35)
[2024-09-17] MEDS ORDERED: PREDNISONE10 MG PO (11:35)
[2024-09-17] MEDS ORDERED: Ipratropium Brom3 ML INH (11:35)
== END 2024-09-17 12:50 | disposition home health service (06) | DRG 871 ==
LOC: ED 15:49 → EDHOLD 17:20 → 4E 17:20
PROVIDERS: Emergency Medicine; Internal Medicine; Student in an Organized Health Care Education/Training Program; ADMIT Internal Medicine; ATTEND Internal Medicine
DX: A41.9 Sepsis, unspecified organism (principal); I21.A1 Myocardial infarction type 2; N17.0 Acute kidney failure with tubular necrosis; J69.0 Pneumonitis due to inhalation of food and vomit; K92.0 Hematemesis; I50.20 Unspecified systolic (congestive) heart failure; J44.1 Chronic obstructive pulmonary disease with (acute) exacerbation; I13.0 Hypertensive heart and chronic kidney disease with heart failure and stage 1 through stage 4 chronic kidney disease, or unspecified chronic kidney disease; Z66 Do not resuscitate; N18.32 Chronic kidney disease, stage 3b; K27.9 Peptic ulcer, site unspecified, unspecified as acute or chronic, without hemorrhage or perforation; E87.6 Hypokalemia; I16.0 Hypertensive urgency; K20.90 Esophagitis, unspecified without bleeding; R65.20 Severe sepsis without septic shock; R73.9 Hyperglycemia, unspecified; J43.9 Emphysema, unspecified; F17.210 Nicotine dependence, cigarettes, uncomplicated; Z20.822 Contact with and (suspected) exposure to COVID-19; I25.10 Atherosclerotic heart disease of native coronary artery without angina pectoris; I25.5 Ischemic cardiomyopathy; Z71.6 Tobacco abuse counseling; Z83.3 Family history of diabetes mellitus

== ENCOUNTER 2025-04-01 15:29 | Emergency (ER) | payer OTHER ==
[~2025-04-01] VITALS: Wt 74.4 kg
[~2025-04-01 15:29] MED LIST changes: +AMLODIPINE BESYL5 MG PO; +Ipratropium Brom3 ML INH; +MUCINEX1200 M1 PO; +NEBULIZER; +OMNICEF300 MG PO; +SYMB80 INH; +VENT7GM INH; +ZITHROMAX250 MG PO
[2025-04-01] MEDS ORDERED: Ondansetron Hydrochloride 4 MG/2 ML VIAL IV ONE (15:50)
[2025-04-01] MEDS ORDERED: SODIUM CHLORIDE 0.9% 1,000 ML IV ONE (15:50)
[2025-04-01 16:05] LABS: BASO # 0.1 10*3/uL (0.0-0.1); BASO % 0.4 % (0.0-1.0); EOS # 0.3 10*3/uL (0.0-0.4); EOS % 2.3 % (1.0-4.0); MEAN CELL VOLUME 91.7 fl (80.0-94.0); MEAN CORPUSCULAR HGB 29.1 pg (27.0-31.0); MEAN PLATELET VOLUME 10.5 fl (9.6-12.3); MONO # 0.4 10*3/uL (0.1-1.0); MONO % 2.9 % (3.0-9.0); NEUT # 11.4 10*3/uL (2.3-7.9); NEUT % 81.2 % (47.0-73.0); NUCLEATED RED BLOOD CELL 0.0 % (0.0-0.0); NUCLEATED RED BLOOD CELL 0.0 10*3/uL (0.0-0.0); PLATELET COUNT AUTOMATED 240 10*3/uL (130-400); RED CELL DISTRI WIDTH 14.2 % (0-14.5)
[2025-04-01 16:40] LABS: BUN 41 mg/dl (9-23); CPK 26 U/L (34-171); ETHYL ALCOHOL < 3.0 mg/dl (<3); SGPT/ALT < 7 U/L (5-49)
[2025-04-01] MEDS ORDERED: Potassium Bicarbonate/Potass 25 MEQ TAB PO ONE (17:05)
[2025-04-01] MEDS ORDERED: POTASSIUM CHLORIDE IN WATER 100 ML IV ONE (17:05)
[2025-04-01 18:20] LABS: BILIRUBIN Negative (Negative); BLOOD Negative (Negative); CLARITY Clear (Clear); COLOR Yellow (Yellow); KETONE Trace (Negative); LEUKO ESTERASE Negative (Negative); NITRITE Negative (Negative); PH 5.0 (4.5-8.0); SPECIFIC GRAVITY 1.015 (1.001-1.030); UROBILINOGEN 1.0 E.U./dl (0.0-1.0)
[2025-04-01 18:28] LABS: URINE AMPHETAMINES Negative (1000ng/ml); URINE BARBITURATES Negative (200ng/ml); URINE BENZODIAZEPINES Negative (200ng/ml); URINE CANNABINOIDS (THC) Negative (50ng/ml); URINE COCAINE Negative (300ng/ml); URINE METHADONE Negative (300ng/ml); URINE OPIATES Negative (300ng/ml); URINE PHENCYCLIDINE Negative (25ng/ml)
[2025-04-01 18:30] LABS: BACTERIA 1+; MUCOUS 1+
[2025-04-02] MEDS ORDERED: SODIUM CHLORIDE 0.9% 1,000 ML IV ONE (03:55)
== END 2025-04-02 08:28 | disposition short-term general hospital (02) ==
LOC: ED 15:29
PROVIDERS: Emergency Medicine
DX: R55 Syncope and collapse (principal); I42.9 Cardiomyopathy, unspecified; E86.0 Dehydration; E87.6 Hypokalemia; I95.9 Hypotension, unspecified; I25.10 Atherosclerotic heart disease of native coronary artery without angina pectoris; J44.9 Chronic obstructive pulmonary disease, unspecified; I11.0 Hypertensive heart disease with heart failure; K21.9 Gastro-esophageal reflux disease without esophagitis; I50.20 Unspecified systolic (congestive) heart failure; F17.210 Nicotine dependence, cigarettes, uncomplicated; Z79.899 Other long term (current) drug therapy; Z98.890 Other specified postprocedural states

== ENCOUNTER 2025-04-08 23:04 | Emergency (ER) | payer OTHER ==
[~2025-04-08] VITALS: Ht 172.7 cm; Wt 74.4 kg
[2025-04-09] MEDS ORDERED: SODIUM CHLORIDE 0.9% 1,000 ML IV ONE (00:20)
[2025-04-09 00:28] LABS: BASO # 0.0 10*3/uL (0.0-0.1); BASO % 0.3 % (0.0-1.0); EOS # 0.2 10*3/uL (0.0-0.4); EOS % 1.9 % (1.0-4.0); MEAN CELL VOLUME 91.4 fl (80.0-94.0); MEAN CORPUSCULAR HGB 28.6 pg (27.0-31.0); MEAN PLATELET VOLUME 10.8 fl (9.6-12.3); MONO # 0.8 10*3/uL (0.1-1.0); MONO % 6.3 % (3.0-9.0); NEUT # 9.5 10*3/uL (2.3-7.9); NEUT % 74.1 % (47.0-73.0); NUCLEATED RED BLOOD CELL 0.0 % (0.0-0.0); NUCLEATED RED BLOOD CELL 0.0 10*3/uL (0.0-0.0); PLATELET COUNT AUTOMATED 248 10*3/uL (130-400); RED CELL DISTRI WIDTH 14.5 % (0-14.5)
[2025-04-09 01:02] LABS: BUN 11 mg/dl (9-23)
[2025-04-09 01:11] LABS: BILIRUBIN Negative (Negative); BLOOD Negative (Negative); CLARITY Cloudy (Clear); COLOR Yellow (Yellow); KETONE 1+ (Negative); LEUKO ESTERASE 2+ (Negative); NITRITE Negative (Negative); PH 8.0 (4.5-8.0); SPECIFIC GRAVITY 1.020 (1.001-1.030); UROBILINOGEN 1.0 E.U./dl (0.0-1.0)
[2025-04-09 01:39] LABS: BACTERIA 4+; WBC 31-40 wbc/hpf (0-5)
[2025-04-09] MEDS ORDERED: hydrALAZINE hydrochloride 20 MG/ML VIAL IV ONE (01:45)
[2025-04-09] MEDS ORDERED: SEPTDS PO (01:55)
[2025-04-09] MEDS ORDERED: Sulfamethoxazole/Trimethopri 1 TAB TAB PO ONE (02:00)
== END 2025-04-09 02:13 | disposition home or self-care (01) ==
LOC: ED 23:04
DX: N39.0 Urinary tract infection, site not specified (principal); R11.2 Nausea with vomiting, unspecified; J06.9 Acute upper respiratory infection, unspecified; I10 Essential (primary) hypertension; J44.9 Chronic obstructive pulmonary disease, unspecified; I25.10 Atherosclerotic heart disease of native coronary artery without angina pectoris; F17.210 Nicotine dependence, cigarettes, uncomplicated; Z98.890 Other specified postprocedural states

== ENCOUNTER 2025-04-11 00:51 | Inpatient (IN) | payer OTHER ==
[~2025-04-11] VITALS: Ht 172.7 cm; Wt 68.5 kg
[2025-04-11] VITALS (8 sets, daily range): BP systolic 99–151; BP diastolic 45–85
[~2025-04-11 00:51] MED LIST changes: +SEPTDS PO
[2025-04-11] MEDS ORDERED: SODIUM CHLORIDE 0.9% 1,000 ML IV ONE ×2 (01:00→03:10)
[2025-04-11 01:19] LABS: BASO # 0.1 10*3/uL (0.0-0.1); BASO % 0.5 % (0.0-1.0); EOS # 0.4 10*3/uL (0.0-0.4); EOS % 2.5 % (1.0-4.0); MEAN CELL VOLUME 93.2 fl (80.0-94.0); MEAN CORPUSCULAR HGB 28.5 pg (27.0-31.0); MEAN PLATELET VOLUME 11.0 fl (9.6-12.3); MONO # 1.0 10*3/uL (0.1-1.0); MONO % 6.3 % (3.0-9.0); NEUT # 12.1 10*3/uL (2.3-7.9); NEUT % 74.0 % (47.0-73.0); NUCLEATED RED BLOOD CELL 0.0 % (0.0-0.0); NUCLEATED RED BLOOD CELL 0.0 10*3/uL (0.0-0.0); PLATELET COUNT AUTOMATED 257 10*3/uL (130-400); RED CELL DISTRI WIDTH 15.2 % (0-14.5)
[2025-04-11 01:37] LABS: BUN 12.0 mg/dl (9-23)
[2025-04-11 02:45] LABS: BILIRUBIN Negative (Negative); BLOOD Negative (Negative); CLARITY Clear (Clear); COLOR Yellow (Yellow); KETONE Trace (Negative); LEUKO ESTERASE 1+ (Negative); NITRITE Negative (Negative); PH 5.5 (4.5-8.0); SPECIFIC GRAVITY 1.015 (1.001-1.030); UROBILINOGEN 1.0 E.U./dl (0.0-1.0)
[2025-04-11 02:59] LABS: MUCOUS 1+
[2025-04-11] MEDS ORDERED: Acetaminophen/Hydrocodone 5 MG/325 MG TABLET PO PRN (05:05)
[2025-04-11] MEDS ORDERED: ACETAMINOPHEN 650 MG SUPP R PRN (05:05)
[2025-04-11] MEDS ORDERED: BISACODYL 10 MG SUPP R PRN (05:05)
[2025-04-11] MEDS ORDERED: Ondansetron Hydrochloride 4 MG/2 ML VIAL IV PRN (05:05)
[2025-04-11] MEDS ORDERED: ACETAMINOPHEN 325 MG TAB PO PRN (05:05)
[2025-04-11] MEDS ORDERED: BISACODYL 5 MG TAB PO PRN (05:05)
[2025-04-11 06:18] LABS: BUN 13.0 mg/dl (9-23); FREE T4 1.15 ng/dl (0.89-1.76); LDL CHOLESTEROL 79.0 mg/dL (9-159); SGPT/ALT 37.0 U/L (5-49)
[2025-04-11 06:19] LABS: BASO # 0.1 10*3/uL (0.0-0.1); BASO % 0.4 % (0.0-1.0); EOS # 0.4 10*3/uL (0.0-0.4); EOS % 2.8 % (1.0-4.0); MEAN CELL VOLUME 93.7 fl (80.0-94.0); MEAN CORPUSCULAR HGB 29.0 pg (27.0-31.0); MEAN PLATELET VOLUME 11.3 fl (9.6-12.3); MONO # 0.7 10*3/uL (0.1-1.0); MONO % 5.3 % (3.0-9.0); NEUT # 10.5 10*3/uL (2.3-7.9); NEUT % 74.2 % (47.0-73.0); NUCLEATED RED BLOOD CELL 0.0 % (0.0-0.0); NUCLEATED RED BLOOD CELL 0.0 10*3/uL (0.0-0.0); PLATELET COUNT AUTOMATED 220 10*3/uL (130-400); RED CELL DISTRI WIDTH 15.0 % (0-14.5)
[2025-04-11 06:21] LABS: ACT PARTIAL THROMBO TIME 28.9 SECONDS (20.0-32.1)
[2025-04-11 07:35] LABS: VITAMIN D, 25-HYDROXY 61.8 ng/mL (30-100)
[2025-04-11] MEDS ORDERED: TORSEMIDE10 MG PO (09:59)
[2025-04-11] MEDS ORDERED: FLOMAX0.4 MG PO (09:59)
[2025-04-11] MEDS ORDERED: ENTRESTO 24 MG1 EACH PO (10:01)
[2025-04-11] MEDS ORDERED: BAYER ASPIRIN C81 MG PO (10:03)
[2025-04-11] MEDS ORDERED: NICOTINE PATCH1 EAC2 TD (10:05)
[2025-04-11] MEDS ORDERED: MULTIVITAMIN1 EACH PO (10:07)
[2025-04-11] MEDS ORDERED: JARDIANCE10 MG PO (23:26)
[2025-04-12] VITALS: BP 130/71
[2025-04-12] MEDS ORDERED: GABAPENTIN 100 MG CAP PO SCH (06:00)
[2025-04-12 07:06] LABS: BASO # 0.0 10*3/uL (0.0-0.1); BASO % 0.4 % (0.0-1.0); EOS # 0.4 10*3/uL (0.0-0.4); EOS % 4.4 % (1.0-4.0); MEAN CELL VOLUME 94.3 fl (80.0-94.0); MEAN CORPUSCULAR HGB 28.7 pg (27.0-31.0); MEAN PLATELET VOLUME 11.1 fl (9.6-12.3); MONO # 0.7 10*3/uL (0.1-1.0); MONO % 6.9 % (3.0-9.0); NEUT # 6.3 10*3/uL (2.3-7.9); NEUT % 64.2 % (47.0-73.0); NUCLEATED RED BLOOD CELL 0.0 % (0.0-0.0); NUCLEATED RED BLOOD CELL 0.0 10*3/uL (0.0-0.0); PLATELET COUNT AUTOMATED 171 10*3/uL (130-400); RED CELL DISTRI WIDTH 15.1 % (0-14.5)
[2025-04-12 07:31] LABS: BUN 14.0 mg/dl (9-23); SGPT/ALT 26.0 U/L (5-49)
[2025-04-12 08:00] VITALS: BP 140/76
[2025-04-12] MEDS ORDERED: Thiamine 100 MG TAB PO SCH (10:00)
[2025-04-12] MEDS ORDERED: MULTIVITAMIN 1 TAB TAB PO SCH (10:00)
[2025-04-12] MEDS ORDERED: Cholecalciferol 2,000 UNIT TABLET (50 MCG) PO SCH (10:00)
[2025-04-12] MEDS ORDERED: SACUBITRIL/VALSARTAN 24 MG-26 MG TABLET PO SCH (10:00)
[2025-04-12] MEDS ORDERED: Venlafaxine Hydrochloride 75 MG CAP PO SCH (10:00)
[2025-04-12] MEDS ORDERED: ASPIRIN, CHEWABLE 81 MG TAB PO SCH (10:00)
[2025-04-12] MEDS ORDERED: EMPAGLIFLOZIN 10 MG TABLET PO SCH (10:00)
[2025-04-12 12:00] VITALS: BP 126/62
[2025-04-12] MEDS ORDERED: ATORVASTATIN CALCIUM 20 MG TAB PO SCH (22:00)
== END 2025-04-12 16:41 | disposition home health service (06) | DRG 74 ==
LOC: ED 00:51 → 5E 03:59 → EDHOLD 03:59 → 5E 04:54
PROVIDERS: Internal Medicine; Student in an Organized Health Care Education/Training Program; ADMIT Internal Medicine; ATTEND Internal Medicine
DX: G90.9 Disorder of the autonomic nervous system, unspecified (principal); E44.0 Moderate protein-calorie malnutrition; N39.0 Urinary tract infection, site not specified; I13.0 Hypertensive heart and chronic kidney disease with heart failure and stage 1 through stage 4 chronic kidney disease, or unspecified chronic kidney disease; I50.22 Chronic systolic (congestive) heart failure; J61 Pneumoconiosis due to asbestos and other mineral fibers; N18.32 Chronic kidney disease, stage 3b; D72.829 Elevated white blood cell count, unspecified; F17.210 Nicotine dependence, cigarettes, uncomplicated; E78.5 Hyperlipidemia, unspecified; J44.9 Chronic obstructive pulmonary disease, unspecified; I25.10 Atherosclerotic heart disease of native coronary artery without angina pectoris; J43.9 Emphysema, unspecified; I25.5 Ischemic cardiomyopathy; R73.9 Hyperglycemia, unspecified; E83.42 Hypomagnesemia; K25.7 Chronic gastric ulcer without hemorrhage or perforation; I95.9 Hypotension, unspecified; Z79.899 Other long term (current) drug therapy; Z71.6 Tobacco abuse counseling; Z79.01 Long term (current) use of anticoagulants; I25.2 Old myocardial infarction; Z79.2 Long term (current) use of antibiotics; Z95.5 Presence of coronary angioplasty implant and graft; Z83.3 Family history of diabetes mellitus; Z68.22 Body mass index [BMI] 22.0-22.9, adult